=== PATIENT | male | born 1990 | race Caucasian/White ===

== ENCOUNTER 2025-05-29 13:41 | Emergency (ER) | payer OTHER, SELFPAY ==
[2025-05-29 13:50] VITALS: BP 160/75; PULSE 80; RESP 20; TEMP 37; O2SAT 100
--- NOTE | 2025-05-29 14:32 | ED_ITS ---
HPI - Male Genitourinary General Chief complaint: Skin/Abscess/Foreign Body Stated complaint: Skin Problem Time Seen by Provider: 05/29/25 14:20 Source: patient and RN notes reviewed Mode of arrival: ambulatory Limitations: no limitations History of Present Illness HPI Narrative: 35-year-old male presents Express Care complaining of left testicle mass. Patient said he knows that approximately 1-2 months ago. Patient reports that is painless however he reports some discomfort to the area. Patient denies any sexual activity or any concern of STDs. Patient denies any penile discharge, swelling, painful erections from urinary symptoms, abdominal pain, fevers, body aches, chills, nausea, vomiting, or any other symptoms. Patient has not had this evaluated. Related Data Home Medications ?Medication ?Instructions ?Recorded ?Confirmed ?Last Taken ?Type No Home Medications 05/29/25 Unknown H istory Allergies Allergy/AdvReac Type Severity Reaction Status Date / Time No Known Allergies Allergy Verified 05/29/25 13:53 Review of Systems Review of Systems: CONSTITUTIONAL: Denies fever, chills, or sweats. EYES: Denies visual changes, redness, or discharge. ENT: Denies rhinorrhea, congestion, sore throat, or otalgia. CARDIOVASCULAR: Denies chest pain, palpitations, or edema. RESPIRATORY: Denies cough or dyspnea. GASTROINTESTINAL: Denies abdominal pain, nausea, vomiting, or diarrhea. GENITOURINARY: Denies dysuria, painful ration, pale discharge, testicular pain, scrotal pain, scrotal swelling, testicular swelling or hematuria. Positive for testicle mass. SKIN: Denies rash or itching. MUSCULOSKELETAL: Denies back pain, joint pain, or myalgia. NEUROLOGIC: Denies headache, numbness, or weakness. PSYCHIATRIC: Denies anxiety or depression. All other systems reviewed are negative, except as documented in HPI. PMFSH Comments At the time of my signature, I reviewed and agree with the nursing past medical, surgical, social, and family history. There is no relevant family history pertinent to the patient complaint. Exam Narrative: GENERAL: This is a well-nourished, well-developed adult, in no apparent distress. They are non ill-appearing, nontoxic appearing. HEAD: normocephalic, atraumatic. EYES: Sclera clear/white. Conjunctiva normal. Vision is grossly intact. Extraocular movements intact EARS: External ears normal, Hearing grossly intact. NOSE: External nose normal THROAT: Mucous membranes moist, NECK: Neck supple, CARDIOVASCULAR: Regular rate and rhythm RESPIRATORY: Respiratory rate normal, respiratory effort nonlabored, no respiratory distress GENITAL URINARY: External penis normal. Palpable mass to the superior portion of the left testicle near the epididymis, left testicle nontender, Right testicle normal. Scrotum so normal. No suspicious lesions or rash is. Cremasteric reflex intact bilaterally SKIN: warm, Dry, intact with no suspicious lesions or rash, good texture and turgor. NEURO: awake, alert, and oriented to person, place and time. There were no obvious focal neurologic abnormalities. EXTREMITIES: No joint tenderness, effusion, or edema noted. Course Course Emergency Course: Portions of this record may have been created with voice recognition software Level of Care: Express Care Visit Vital Signs Vital signs: Vital Signs Temperature 98.6 F 05/29/25 13:50 Pulse Rate 80 05/29/25 13:50 Respiratory Rate 20 05/29/25 13:50 Blood Pressure 160/75 H 05/29/25 13:50 Pulse Oximetry 100 05/29/25 13:50 Oxygen Delivery Room Air 05/29/25 13:50 Temperature 98.6 F 05/29/25 13:50 Pulse Rate 80 05/29/25 13:50 Respiratory Rate 20 05/29/25 13:50 Blood Pressure 160/75 H 05/29/25 13:50 Pulse Oximetry 100 05/29/25 13:50 Oxygen Delivery Room Air 05/29/25 13:50 Reviewed MDM - Male Genitourinary MDM Narrative Medical decision making narrative: Radha DAWKINS was behavioral health case manager in room present during genital exam. There is a nontender palpable mass to the superior portion of the left testicle, could be varicocele, cremasteric reflex intact bilaterally, low suspicion for torsion given length of symptoms. Refer patient Urology for further evaluation and to obtain ultrasound imaging. Patient adamantly denies any concerns for STDs, denies any sexual activity. Discussed physical exam findings. Advised supportive measures and signs/symptoms to go to the ER. Pt is appropriate for outpt treatment and f/u. Differential Diagnosis Differential diagnosis: Likely epididymitis and other (Testicular torsion, testicular mass, varicocele) Critical Care Time Critical Care Time Critical Care Time: No Discharge Plan Discharge Clinical Impression: Mass of left testis Patient Disposition: Home Condition: Stable Instructions: Testicle Pain (ED) Additional Instructions: Please follow-up with urology for further evaluation of your testicle mass. This likely needs an ultrasound to determine what it is. Follow-up with PCP in 3-5 days. If you develops severe testicle pain, penile discharge, fevers, urinary symptoms, or any serious concerns please go to the ER immediately. Patient Language: Danish Prescriptions: No Action No Home Medications Follow-up/Referrals: Wyatt Aburto MD [Physician, Family Practice] PHYSICIAN,BROADCAST CHIEF ENGINEER [Primary Care Provider, Internal Medicine] Nelson Rodriguez MD [Physician, Urology] Stand Alone Forms: Work/School Release IP Time of Disposition: 14:28
== END 2025-05-29 14:32 | disposition home or self-care (01) ==
DX: N50.9 Disorder of male genital organs, unspecified (principal)
CPT/HCPCS: 99202; G0463